=== PATIENT | female | born 1975 | race African-American/Black ===

== ENCOUNTER 2022-09-21 17:21 | Inpatient (IN) | payer OTHER ==
[2022-09-21] MEDS ORDERED: VANCOMYCIN 1 GM in D5W (PRE-DOCKED) 1,000 MG/250 ML (RESTRICTED TO ID ONLY IVPB ONE (17:49)
[2022-09-21] MEDS ORDERED: CEFEPIME HCL/D5W 2 GM/50 ML BAG IVPB ONE (17:49)
[2022-09-21] MEDS ORDERED: LACTATED RINGERS SOLUTION 1,000 ML/1,000 ML INFUS.BAG IV SCH (18:00)
[2022-09-21] MEDS ORDERED: CEFEPIME 2 GM/100 ML BAG IVPB ONE (18:03)
[2022-09-21] MEDS ORDERED: VANCOMYCIN/WATER FOR INJ (PEG) 1,000 MG/200 ML BAG IVPB ONE (18:03)
[2022-09-21] MEDS ORDERED: ACETAMINOPHEN INJECTION 100 ML IVPB ONE (18:07)
[2022-09-21] MEDS ORDERED: ACETAMINOPHEN 1000 MG/100 ML BAG IVPB ONE (18:11)
[2022-09-21 18:34] LABS: VENOUS BASE EXCESS 1.3 mmol/L (-2-2); VENOUS O2 SATURATION 31.6 % (70-80); VENOUS PCO2 46.6 mmHg (38-52); VENOUS PH 7.377 (7.310-7.410)
[2022-09-21 18:42] LABS: MCH 29.2 pg (25.7-33.7); MCHC 31.5 g/dl (32.0-36.0); MEAN CELL VOLUME 92.5 fl (80-96); MEAN PLT VOLUME 9.7 fl (7.5-11.1); RBC 2.17 M/mm3 (3.60-5.2); RDW 15.5 % (11.6-15.6); WHITE BLOOD COUNT 29.1 K/mm3 (4.0-10.0)
[2022-09-21 18:45] LABS: HEMOGLOBIN 6.3 GM/dL (10.7-15.3); PLATELET COUNT 16 10^3/uL (134-434)
[2022-09-21 18:50] LABS: INR 1.32 (0.83-1.09); PROTHROMBIN TIME (PATIENT) 15.3 SEC (9.7-13.0)
[2022-09-21 18:53] LABS: ACTIVATED PTT 21.8 SECONDS (25.2-36.5)
[2022-09-21 18:56] LABS: CHLORIDE 109 mmol/L (98-107); POTASSIUM 3.6 mmol/L (3.5-5.1); SODIUM 145 mmol/L (136-145)
[2022-09-21 18:58] LABS: ALBUMIN 2.4 g/dl (3.4-5.0); ANION GAP 6 MMOL/L (8-16); BLOOD UREA NITROGEN 28.6 mg/dL (7-18); CO2 29 mmol/L (21-32); GLUCOSE,RANDOM 100 mg/dL (74-106)
[2022-09-21 19:02] LABS: CREATININE 1.4 mg/dL (0.55-1.3); SGOT/AST 60 U/L (15-37); SGPT/ALT 43 U/L (13-61)
[2022-09-21 19:03] LABS: BILIRUBIN,TOTAL 1.6 mg/dL (0.2-1); TOT PROT 5.3 g/dl (6.4-8.2)
[2022-09-21 19:04] LABS: ALK PHOS 262 U/L (45-117)
[2022-09-21 19:13] LABS: CALCIUM 17.2 mg/dL (8.5-10.1)
[2022-09-21 19:15] LABS: LACTIC ACID 3.2 mmol/L (0.4-2.0)
[2022-09-21] MEDS ORDERED: LACTATED RINGERS SOLUTION 1,000 ML IV STA (20:12)
[2022-09-21] MEDS ORDERED: FENTANYL CITRATE/PF 50 MCG/ML VIAL ONE (20:32)
[2022-09-21 21:34] LABS: TOTAL IRON BINDING CAPACITY 188 ug/dL (250-450)
[2022-09-21 21:35] LABS: IRON SERUM 104 ug/dL (50-175)
[2022-09-21 21:40] LABS: LDH 804 U/L (84-246)
[2022-09-21 21:40] LABS: LACTIC ACID 2.9 mmol/L (0.4-2.0)
[2022-09-21] MEDS ORDERED: ACETAMINOPHEN 1000 MG/100 ML BAG IVPB PRN (22:15)
[2022-09-21 23:54] LABS: EPI CELLS >36 /uL (0-25.1); HYALINE CASTS 6 /uL (0-3.1); PH,URINE 5.5 (5.0-8.0); URINE APPEARANCE CLOUDY; URINE BACTERIA 6 /uL (0-1359); URINE BILIRUBIN NEGATIVE (NEGATIVE); URINE COLOR DK YELLOW; URINE GLUCOSE (UA) NEGATIVE (NEGATIVE); URINE KETONE NEGATIVE (NEGATIVE); URINE LEUK ESTERASE NEGATIVE (NEGATIVE); URINE NITRITE NEGATIVE (NEGATIVE); URINE PROTEIN 2+ (NEGATIVE); URINE UROBILINOGEN 0.2 mg/dL (0.2-1.0)
[2022-09-22] MEDS ORDERED: LACTATED RINGERS SOLUTION 1,000 ML/1,000 ML INFUS.BAG IV SCH (05:15)
[2022-09-22 05:42] VITALS: BMI 21.7
[2022-09-22] MEDS ORDERED: FENTANYL PATCH WASTE TD PRN (05:56)
[2022-09-22] MEDS ORDERED: fentaNYL 12mcg/hr PATCH.TD72 TD SCH (06:00)
[2022-09-22] MEDS: DOCUSATE SODIUM 100 MG CAPSULE (FP) PO SCH ×3 (06:18→21:31)
[2022-09-22] MEDS: NYSTATIN 500,000 UNITS/5 ML SUSPENSION PO SCH ×3 (06:36→19:41)
[2022-09-22 07:36] LABS: CHLORIDE 112 mmol/L (98-107); POTASSIUM 3.2 mmol/L (3.5-5.1); SODIUM 148 mmol/L (136-145)
[2022-09-22 07:43] LABS: ANION GAP 8 MMOL/L (8-16); BLOOD UREA NITROGEN 33.9 mg/dL (7-18); CO2 28 mmol/L (21-32); GLUCOSE,RANDOM 99 mg/dL (74-106); MAGNESIUM 1.7 mg/dL (1.8-2.4)
[2022-09-22 07:45] LABS: CREATININE 1.3 mg/dL (0.55-1.3); PHOSPHOROUS 5.3 mg/dL (2.5-4.9)
[2022-09-22 07:57] LABS: HEMATOCRIT 26.2 % (32.4-45.2); HEMOGLOBIN 8.6 GM/dL (10.7-15.3); MCH 28.4 pg (25.7-33.7); MCHC 32.8 g/dl (32.0-36.0); MEAN CELL VOLUME 86.5 fl (80-96); MEAN PLT VOLUME 8.2 fl (7.5-11.1); RBC 3.03 M/mm3 (3.60-5.2); RDW 17.3 % (11.6-15.6)
[2022-09-22] MEDS ORDERED: WATER IVPB SCH (08:00)
[2022-09-22] MEDS ORDERED: DEXTROSE 5% IVPB SCH (08:00)
[2022-09-22] MEDS ORDERED: CEFEPIME IVPB SCH (08:00)
[2022-09-22 08:10] LABS: CALCIUM 16.7 mg/dL (8.5-10.1)
[2022-09-22] MEDS ORDERED: MAGNESIUM SULF 50% (8.12 MEQ/2 ML-1 GM VIAL) ONE (08:12)
[2022-09-22] MEDS ORDERED: MAGNESIUM SULFATE IN WATER 2 GM/50 ML IVPB IVPB ONE (08:15)
[2022-09-22 08:25] LABS: INR 1.17 (0.83-1.09); PROTHROMBIN TIME (PATIENT) 13.5 SEC (9.7-13.0)
[2022-09-22 08:32] LABS: URINE RBC 318.3 /uL (0-23.9); URINE WBC 400 /uL (0-25.8)
[2022-09-22 08:33] LABS: PLATELET COUNT 24 10^3/uL (134-434); WHITE BLOOD COUNT 30.8 K/mm3 (4.0-10.0)
[2022-09-22] MEDS: KCL 10 MEQ IVPB 10 MEQ/100 ML INFUS.BAG IVPB SCH ×3 (08:54→11:20)
[2022-09-22] MEDS ORDERED: SODIUM CHLORIDE 500 ML IV STA (09:41)
[2022-09-22] MEDS ORDERED: FLUCONAZOLE 100 MG TABLET (UD) PO SCH (10:00)
[2022-09-22] MEDS ORDERED: VANCOMYCIN/WATER FOR INJ (PEG) 1,000 MG/200 ML BAG IVPB SCH (10:00)
[2022-09-22] MEDS ORDERED: PANTOPRAZOLE SODIUM 40 MG VIAL IVPUSH SCH (10:00)
[2022-09-22] MEDS ORDERED: CALCITONIN - SALMON SYNTHETIC 400 UNIT/2 ML VIAL IM SCH ×2 (10:15→11:00)
[2022-09-22 10:18] LABS: ANISOCYTOSIS 0; HELMET CELLS 0; HOWELL-JOLLY BODIES 0; MACROCYTOSIS 0; OVALOCYTE 0; ROULEAU 0; SICKELED CELLS 0; TARGET CELLS 0; TEAR DROP CELLS 0; TOXIC GRANULATION 0
[2022-09-22] MEDS ORDERED: SODIUM CHLORIDE 1,000 ML IV SCH ×2 (10:30→17:00)
[2022-09-22] MEDS ORDERED: MEROPENEM 1 GM in DEXTROSE 5%-WATER 100 ML IVPB SCH (11:00)
[2022-09-22] MEDS ORDERED: FLUCONAZOLE 100 MG/NS 50 ML IVPB SCH (12:00)
[2022-09-22] MEDS ORDERED: RAPID SEQUENCE INTUBATION KIT NR ONE (12:46)
[2022-09-22] MEDS ORDERED: PROPOFOL 1,000,000 MCG/100 ML VIAL ONE (12:47)
[2022-09-22] MEDS ORDERED: ROCURONIUM BROMIDE 50 MG/5 ML VIAL IV ONE (12:47)
[2022-09-22] MEDS ORDERED: ETOMIDATE 20 MG/10 ML VIAL IVPUSH ONE (12:48)
[2022-09-22] MEDS ORDERED: NOREPINEPHRINE BITARTRATE 4,000 MCG in DEXTROSE 5%-WATER - 496 ML IV SCH (13:00)
[2022-09-22] MEDS: MUPIROCIN 2% TOPICAL OINTMENT FOR DECOLONIZATION NS SCH ×2 (13:56→21:32)
[2022-09-22] MEDS ORDERED: NOREPINEPHRINE BITARTRATE 4 MG/4 ML ML IV ONE (14:47)
[2022-09-22] MEDS ORDERED: SODIUM CHLORIDE 1,000 ML IV STA ×2 (16:48)
[2022-09-22] MEDS ORDERED: FENTANYL NS IVPB 500 MCG/100 ML BAG IVPB SCH (17:00)
[2022-09-22] MEDS ORDERED: PROPOFOL 1,000,000 MCG/100 ML VIAL IVPB SCH (17:00)
[2022-09-22 17:03] LABS: ALLENS TEST POSITIVE; ARTERIAL BLD GAS O2 SATURATION 92.6 % (95-98); ARTERIAL BLOOD GAS BASE EXCESS -0.5 mmol/L (-2-2); ARTERIAL BLOOD GAS PO2 62.5 mmHg (80-100); ARTERIAL BLOOD GAS pH 7.425 (7.350-7.450)
[2022-09-22 17:04] LABS: VENT MODE A/C; VENT RATE 30
[2022-09-22 17:06] LABS: HEMOGLOBIN 8.4 GM/dL (10.7-15.3); MCH 27.5 pg (25.7-33.7); MCHC 32.3 g/dl (32.0-36.0); MEAN CELL VOLUME 85.1 fl (80-96); MEAN PLT VOLUME 8.1 fl (7.5-11.1); RBC 3.06 M/mm3 (3.60-5.2); RDW 18.1 % (11.6-15.6)
[2022-09-22 17:16] LABS: PLATELET COUNT 21 10^3/uL (134-434); WHITE BLOOD COUNT 42.4 K/mm3 (4.0-10.0)
[2022-09-22 17:21] LABS: INR 1.26 (0.83-1.09); PROTHROMBIN TIME (PATIENT) 14.6 SEC (9.7-13.0)
[2022-09-22 17:30] LABS: CHLORIDE 117 mmol/L (98-107); POTASSIUM 3.1 mmol/L (3.5-5.1); SODIUM 150 mmol/L (136-145)
[2022-09-22 17:33] LABS: ANION GAP 8 MMOL/L (8-16); BLOOD UREA NITROGEN 30.4 mg/dL (7-18); CO2 26 mmol/L (21-32); GLUCOSE,RANDOM 102 mg/dL (74-106); MAGNESIUM 2.2 mg/dL (1.8-2.4)
[2022-09-22 17:35] LABS: SGPT/ALT 30 U/L (13-61)
[2022-09-22 17:36] LABS: CREATININE 1.3 mg/dL (0.55-1.3); PHOSPHOROUS 3.4 mg/dL (2.5-4.9); SGOT/AST 46 U/L (15-37)
[2022-09-22 17:38] LABS: BILIRUBIN,TOTAL 1.3 mg/dL (0.2-1); TOT PROT 4.4 g/dl (6.4-8.2)
[2022-09-22 17:42] LABS: ALBUMIN 1.9 g/dl (3.4-5.0); ALK PHOS 206 U/L (45-117)
[2022-09-22 17:43] LABS: LACTIC ACID 2.4 mmol/L (0.4-2.0)
[2022-09-22] MEDS ORDERED: KCL 10 MEQ IVPB 10 MEQ/100 ML INFUS.BAG IVPB SCH (17:45)
[2022-09-22] MEDS ORDERED: POTASSIUM CHLORIDE 10 MEQ in SODIUM CHLORIDE 0.45% 1,000 ML IVPB SCH (17:45)
[2022-09-22] MEDS ORDERED: SODIUM CHLORIDE 0.45%/POT 20 MEQ/1,000 ML INFUS.BAG IV SCH (17:45)
[2022-09-22 18:08] LABS: ANISOCYTOSIS 2+; MACROCYTOSIS 0; OVALOCYTE 2+
[2022-09-22 21:41] VITALS: PULSE 103
[2022-09-22] MEDS ORDERED: CHLORHEXIDINE GLUCONATE 4% CLEANSER FOR DECOLONIZATION TP SCH (22:00)
[2022-09-23 01:43] VITALS: BP 86/56; RESP 25; TEMP 99.1
== END 2022-09-22 23:13 | disposition short-term general hospital (02) | DRG 720 ==
LOC: JER 17:21 → JERBED 18:44 → JICU 23:00
PROVIDERS: ADMIT Internal Medicine; ATTEND Internal Medicine
PROC: 30233R1 Transfusion of Nonautologous Platelets into Peripheral Vein, Percutaneous Approach (ICD-10-PCS; 2022-09-21)
PROC: 30233N1 Transfusion of Nonautologous Red Blood Cells into Peripheral Vein, Percutaneous Approach (ICD-10-PCS; 2022-09-21)
PROC: 0BH17EZ Insertion of Endotracheal Airway into Trachea, Via Natural or Artificial Opening (ICD-10-PCS; principal; 2022-09-22)
PROC: 5A1935Z Respiratory Ventilation, Less than 24 Consecutive Hours (ICD-10-PCS; 2022-09-22)
PROC: 05HD33Z Insertion of Infusion Device into Right Cephalic Vein, Percutaneous Approach (ICD-10-PCS; 2022-09-22)
PROC: B54MZZA Ultrasonography of Right Upper Extremity Veins, Guidance (ICD-10-PCS; 2022-09-22)
DX: A41.89 Other specified sepsis (principal); R65.21 Severe sepsis with septic shock; C91.50 Adult T-cell lymphoma/leukemia (HTLV-1-associated) not having achieved remission; E83.52 Hypercalcemia; E87.6 Hypokalemia; B25.9 Cytomegaloviral disease, unspecified; D64.9 Anemia, unspecified; N17.9 Acute kidney failure, unspecified; I12.9 Hypertensive chronic kidney disease with stage 1 through stage 4 chronic kidney disease, or unspecified chronic kidney disease; N18.9 Chronic kidney disease, unspecified; E87.0 Hyperosmolality and hypernatremia; D69.6 Thrombocytopenia, unspecified; J18.9 Pneumonia, unspecified organism; J96.01 Acute respiratory failure with hypoxia; R00.0 Tachycardia, unspecified; L89.153 Pressure ulcer of sacral region, stage 3; L89.222 Pressure ulcer of left hip, stage 2
CPT/HCPCS: 0241U-QW; 31500; 36415; 36430; 36600; 70450-TC; 71045-TC-FY; 71250-TC; 74176-TC; 80048; 80053; 81003; 82330; 82607; 82746; 82803; 82962; 83010; 83540; 83550; 83605; 83615; 83735; 84100; 84436; 84443; 84484; 84703; 85025; 85045; 85610; 85730; 86900; 86922; 87040; 87086; 87449; 87899; 93005; 93010; 94002; 99291; G0480; J3480; P9034; P9037; P9038; P9058